=== PATIENT | male | born 1990 | race Caucasian/White ===

== ENCOUNTER 2017-01-29 17:13 | Emergency (ER) | payer MEDICAID ==
[~2017-01-29] VITALS: Ht 175.3 cm; Wt 68.3 kg
[2017-01-29 17:23] VITALS: BP 129/74
== END 2017-01-29 17:42 | disposition home or self-care (01) ==
LOC: ED 17:36
DX: K08.89 Other specified disorders of teeth and supporting structures (principal)
CPT/HCPCS: 99283

== ENCOUNTER 2017-12-20 14:18 | Emergency (ER) | payer MEDICAID ==
[~2017-12-20] VITALS: Ht 170.2 cm; Wt 73.1 kg
[2017-12-20 14:35] VITALS: BP 114/69
== END 2017-12-20 15:21 | disposition left against medical advice (07) ==
LOC: ED 15:15
DX: Z53.21 Procedure and treatment not carried out due to patient leaving prior to being seen by health care provider (principal)